=== PATIENT | male | born 1950 | race African-American/Black ===

== ENCOUNTER 2020-10-14 09:28 | Inpatient (IN) | payer MEDICARE, OTHER ==
[~2020-10-14] VITALS: Ht 172.7 cm; Wt 92.1 kg
[2020-10-14] MEDS ORDERED: LEVOFLOXACIN 500MG PREMIX 100 ML IV ONE (10:00)
[2020-10-14 10:15] LABS: HEMATOCRIT. 43.2 % (42.0-52.0); MEAN CORPUSCULAR HEMOGLOBIN 31.1 pg (28.0-32.0); MEAN CORPUSCULAR VOLUME 89.3 fL (80.0-94.0); MEAN PLATELET VOLUME 9.3 fl (7.4-10.4); PLATELET 108 x1000/uL (130-400); RED BLOOD CELL COUNT 4.83 mill/uL (4.7-6.1); RED CELL DISTRIBUTION WIDTH 13.5 % (11.6-14.6)
[2020-10-14 10:23] LABS: CHLORIDE 98 mEq/L (98-107)
[2020-10-14 11:03] LABS: PLATELET ESTIMATE SLIGHTLY DECREASED
[2020-10-14] MEDS ORDERED: FUROSEMIDE 20MG/2ML VIAL IVP ONE (12:15)
[2020-10-14] MEDS ORDERED: ONDANSETRON HCL 4MG/2ML INJ IV PRN (15:45)
[2020-10-14] MEDS ORDERED: CLONIDINE 0.1MG TABLET PO PRN (15:45)
[2020-10-14 17:20] VITALS: BP 139/81
[2020-10-14] MEDS: FUROSEMIDE 40MG/4ML VIAL IVP SCH (17:37)
[2020-10-14] MEDS: ENOXAPARIN 40MG/0.4ML SYR SUBCUT SCH (17:37)
[2020-10-14] MEDS: ACETAMINOPHEN 325MG TABLET PO PRN (17:39)
[2020-10-14] MEDS: BLOOD SUGAR DIAGNOSTIC STRIP TEST SCH ×2 (17:40→20:30)
[2020-10-14] MEDS: INSULIN LISPRO 100 UNITS/ML SUBCUT SCH ×2 (17:56→20:27)
[2020-10-14 18:20] VITALS: BP 142/81
[2020-10-14 20:00] VITALS: BP 119/67
[2020-10-14 23:35] LABS: CREATINE KINASE MB FRACTION < 1.0 ng/mL (0.5-3.6)
[2020-10-14 23:45] LABS: CREATINE KINASE 1060 IU/L (39-308)
[2020-10-15] VITALS: BP 121/68
[2020-10-15 04:00] VITALS: BP 141/73
[2020-10-15] MEDS: BLOOD SUGAR DIAGNOSTIC STRIP TEST SCH ×4 (07:18→20:33)
[2020-10-15] MEDS: INSULIN LISPRO 100 UNITS/ML SUBCUT SCH ×4 (07:18→20:34)
[2020-10-15 07:27] LABS: HEMATOCRIT. 41.4 % (42.0-52.0); HEMOGLOBIN. 14.3 g/dL (14.0-18.0); MEAN CORPUSCULAR HEMOGLOBIN 30.9 pg (28.0-32.0); MEAN CORPUSCULAR VOLUME 89.3 fL (80.0-94.0); MEAN PLATELET VOLUME 9.7 fl (7.4-10.4); PLATELET 91 x1000/uL (130-400); RED BLOOD CELL COUNT 4.63 mill/uL (4.7-6.1); RED CELL DISTRIBUTION WIDTH 13.4 % (11.6-14.6)
[2020-10-15 07:54] LABS: CHLORIDE 101 mEq/L (98-107)
[2020-10-15 07:58] VITALS: BP 125/73
[2020-10-15 08:02] LABS: CREATINE KINASE 999 IU/L (39-308)
[2020-10-15 08:04] LABS: CREATINE KINASE MB FRACTION < 1.0 ng/mL (0.5-3.6)
[2020-10-15 08:53] LABS: CLARITY URINE CLOUDY (CLEAR); COLOR URINE YELLOW (YELLOW); KETONES URINE NEGATIVE (NEGATIVE); LEUKOCYTE ESTERASE URINE NEGATIVE (NEGATIVE); NITRITE URINE NEGATIVE (NEGATIVE); OCCULT BLOOD URINE 1+ (NEGATIVE); PROTEIN URINE 1+ (NEGATIVE); SPECIFIC GRAVITY URINE 1.017 (1.005-1.030); UROBILINOGEN URINE 0.2 E.U./dL (0.2-1.0)
[2020-10-15] MEDS: FUROSEMIDE 40MG/4ML VIAL IVP SCH (08:59)
[2020-10-15] MEDS ORDERED: LEVOFLOXACIN 250MG PREMIX 100 ML IV SCH (10:00)
[2020-10-15] MEDS: ACETAMINOPHEN 325MG TABLET PO PRN (10:25)
[2020-10-15 12:00] VITALS: BP 133/72
[2020-10-15] MEDS: DEXAMETHASONE 6MG TABLET PO SCH (13:48)
[2020-10-15] MEDS: ENOXAPARIN 40MG/0.4ML SYR SUBCUT SCH (15:07)
[2020-10-15 16:00] VITALS: BP 136/77
[2020-10-15 17:03] LABS: PLATELET ESTIMATE DECREASED
[2020-10-15 20:00] VITALS: BP 153/75
[2020-10-15] MEDS: AMLODIPINE 5MG TABLET PO SCH (20:33)
[2020-10-16] VITALS: BP 150/69
[2020-10-16 04:00] VITALS: BP 145/82
[2020-10-16 06:55] LABS: BASOPHILS % 0.2 % (0.0-2.0); HEMATOCRIT. 43.8 % (42.0-52.0); LYMPHOCYTES % 12.7 % (20.0-50.0); MEAN CORPUSCULAR HEMOGLOBIN 30.8 pg (28.0-32.0); MEAN PLATELET VOLUME 9.6 fl (7.4-10.4); NEUTROPHILS % 82.1 % (40.0-76.0); PLATELET 97 x1000/uL (130-400); RED BLOOD CELL COUNT 4.86 mill/uL (4.7-6.1); RED CELL DISTRIBUTION WIDTH 13.6 % (11.6-14.6)
[2020-10-16] MEDS: BLOOD SUGAR DIAGNOSTIC STRIP TEST SCH ×4 (07:40→21:00)
[2020-10-16 08:00] VITALS: BP 142/83
[2020-10-16] MEDS: AMLODIPINE 5MG TABLET PO SCH ×2 (08:29→22:00)
[2020-10-16] MEDS: DEXAMETHASONE 6MG TABLET PO SCH (08:29)
[2020-10-16] MEDS: INSULIN LISPRO 100 UNITS/ML SUBCUT SCH ×4 (08:30→21:00)
[2020-10-16] MEDS: LEVOFLOXACIN 250MG PREMIX 100 ML IV SCH (11:31)
[2020-10-16] MEDS: LOSARTAN POTASSIUM 25 MG TABLET PO SCH ×2 (11:34→15:28)
[2020-10-16 12:00] VITALS: BP 128/70
[2020-10-16] MEDS ORDERED: DEX6 PO (12:38)
[2020-10-16] MEDS ORDERED: LEVO500T89 MT (12:38)
[2020-10-16] MEDS ORDERED: INSULIN GLARGINE UD 100 UNITS/ML SYR SUBCUT SCH (14:00)
[2020-10-16] MEDS: ENOXAPARIN 40MG/0.4ML SYR SUBCUT SCH (15:28)
[2020-10-16 16:00] VITALS: BP 123/68
[2020-10-16 21:49] LABS: *AMPHETAMINES SCREEN URINE NEGATIVE (NEGATIVE); *BARBITURATES SCREEN URINE NEGATIVE (NEGATIVE); *BENZODIAZEPINES SCREEN URINE NEGATIVE (NEGATIVE); *COCAINE SCREEN URINE NEGATIVE (NEGATIVE)
[2020-10-16 21:50] LABS: CANNABINOID URINE SCREEN NEGATIVE (NEGATIVE); METHADONE URINE SCREEN NEGATIVE (NEGATIVE); OPIATES URINE SCREEN NEGATIVE (NEGATIVE); PHENCYCLIDINE URINE SCREEN NEGATIVE (NEGATIVE)
[2020-10-17] VITALS (7 sets, daily range): BP systolic 119–149; BP diastolic 68–88
[2020-10-17] MEDS: ACETAMINOPHEN 325MG TABLET PO PRN ×2 (06:18→23:54)
[2020-10-17] MEDS: BLOOD SUGAR DIAGNOSTIC STRIP TEST SCH ×4 (06:53→21:00)
[2020-10-17 07:10] LABS: HEMATOCRIT 46.6 % (42.0-52.0); HEMOGLOBIN 16.3 g/dL (14.0-18.0); MEAN CORPUSCULAR HEMOGLOBIN 31.2 pg (28.0-32.0); MEAN CORPUSCULAR VOLUME 89.2 fL (80.0-94.0); PLATELET 87 x1000/uL (130-400); RED BLOOD CELL COUNT 5.23 mill/uL (4.7-6.1); RED CELL DISTRIBUTION WIDTH 13.5 % (11.6-14.6)
[2020-10-17] MEDS: AMLODIPINE 5MG TABLET PO SCH ×2 (08:08→21:57)
[2020-10-17] MEDS: DEXAMETHASONE 6MG TABLET PO SCH (08:08)
[2020-10-17] MEDS: LOSARTAN POTASSIUM 25 MG TABLET PO SCH ×2 (08:08→16:09)
[2020-10-17] MEDS: INSULIN LISPRO 100 UNITS/ML SUBCUT SCH ×5 (08:11→21:56)
[2020-10-17] MEDS: LEVOFLOXACIN 250MG PREMIX 100 ML IV SCH (11:37)
[2020-10-17 14:07] LABS: BG BASE EXCESS -0.7 mmol/L (-2.0-2.0); BG CARBOXYHEMOGLOBIN 1.2 % (0.5-1.5); BG DEOXYHEMOGLOBIN 7.3 % (0.0-5.0); BG FRACTION INSPIRED OXYGEN 99.8; BG METHEMOGLOBIN 0.1 % (0.0-1.5); BG OXYGEN SATURATION 92.6 % (92.0-98.5); BG OXYHEMOGLOBIN 91.4 % (94.0-97.0); BG PCO2 31.5 mmHg (35.0-45.0); BG PH 7.461 (7.350-7.450); BG PO2 62.3 mmHg (75.0-100.0); BG SAMPLE SITE LEFT RADIAL; BG TOTAL HEMOGLOBIN 16.8 g/dL (12.0-18.0); BG VENT MODE MASK - NRB
[2020-10-17] MEDS: ENOXAPARIN 40MG/0.4ML SYR SUBCUT SCH (16:00)
[2020-10-17] MEDS ORDERED: INSULIN GLARGINE UD 100 UNITS/ML SYR SUBCUT NR (19:00)
[2020-10-17] MEDS: INSULIN GLARGINE UD 100 UNITS/ML SYR SUBCUT SCH (21:57)
[2020-10-18 04:00] VITALS: BP 112/90
[2020-10-18 05:18] LABS: CHLORIDE 99 mEq/L (98-107)
[2020-10-18 06:17] LABS: BASOPHILS % 0.4 % (0.0-2.0); HEMATOCRIT. 45.4 % (42.0-52.0); HEMOGLOBIN. 15.4 g/dL (14.0-18.0); LYMPHOCYTES % 15.8 % (20.0-50.0); MEAN CORPUSCULAR VOLUME 88.7 fL (80.0-94.0); MEAN PLATELET VOLUME 9.4 fl (7.4-10.4); MONOCYTES % 11.4 % (2.0-8.0); NEUTROPHILS % 72.4 % (40.0-76.0); PLATELET 95 x1000/uL (130-400); RED BLOOD CELL COUNT 5.12 mill/uL (4.7-6.1); RED CELL DISTRIBUTION WIDTH 13.5 % (11.6-14.6)
[2020-10-18] MEDS: BLOOD SUGAR DIAGNOSTIC STRIP TEST SCH ×4 (07:40→21:18)
[2020-10-18 08:00] VITALS: BP 124/75
[2020-10-18] MEDS: DEXAMETHASONE 6MG TABLET PO SCH (08:04)
[2020-10-18] MEDS: LOSARTAN POTASSIUM 25 MG TABLET PO SCH ×2 (08:05→16:37)
[2020-10-18] MEDS: AMLODIPINE 5MG TABLET PO SCH ×2 (08:05→21:20)
[2020-10-18] MEDS: INSULIN LISPRO 100 UNITS/ML SUBCUT SCH ×4 (08:07→21:38)
[2020-10-18] MEDS: INSULIN GLARGINE UD 100 UNITS/ML SYR SUBCUT SCH ×2 (09:40→21:25)
[2020-10-18] MEDS: LEVOFLOXACIN 250MG PREMIX 100 ML IV SCH (10:15)
[2020-10-18 12:00] VITALS: BP 136/81
[2020-10-18 16:00] VITALS: BP 136/84
[2020-10-18 20:00] VITALS: BP 135/80
[2020-10-19] VITALS: BP 140/83
[2020-10-19 04:00] VITALS: BP 130/81
[2020-10-19] MEDS: BLOOD SUGAR DIAGNOSTIC STRIP TEST SCH ×4 (07:54→21:53)
[2020-10-19 08:00] VITALS: BP 118/63
[2020-10-19] MEDS: LOSARTAN POTASSIUM 25 MG TABLET PO SCH ×2 (08:08→16:25)
[2020-10-19] MEDS: DEXAMETHASONE 6MG TABLET PO SCH (08:09)
[2020-10-19] MEDS: INSULIN LISPRO 100 UNITS/ML SUBCUT SCH ×4 (08:09→21:49)
[2020-10-19] MEDS: AMLODIPINE 5MG TABLET PO SCH ×2 (08:09→21:48)
[2020-10-19] MEDS: INSULIN GLARGINE UD 100 UNITS/ML SYR SUBCUT SCH ×2 (10:43→21:49)
[2020-10-19 12:01] VITALS: BP 141/78
[2020-10-19] MEDS: ACETAMINOPHEN 325MG TABLET PO PRN (16:25)
[2020-10-19 16:53] VITALS: BP 143/75
[2020-10-19 20:00] VITALS: BP 133/66
[2020-10-20] VITALS: BP 121/65
[2020-10-20 04:00] VITALS: BP 126/67
[2020-10-20] MEDS: INSULIN LISPRO 100 UNITS/ML SUBCUT SCH ×4 (06:49→21:18)
[2020-10-20] MEDS: BLOOD SUGAR DIAGNOSTIC STRIP TEST SCH ×4 (06:49→21:19)
[2020-10-20 08:00] VITALS: BP 119/67
[2020-10-20] MEDS: LOSARTAN POTASSIUM 25 MG TABLET PO SCH ×2 (09:02→16:38)
[2020-10-20] MEDS: DEXAMETHASONE 6MG TABLET PO SCH (09:03)
[2020-10-20] MEDS: AMLODIPINE 5MG TABLET PO SCH ×2 (09:03→21:17)
[2020-10-20] MEDS: INSULIN GLARGINE UD 100 UNITS/ML SYR SUBCUT SCH ×2 (10:41→21:19)
[2020-10-20 12:00] VITALS: BP 125/73
[2020-10-20] MEDS: DOCUSATE SODIUM SUGAR FREE 100MG/10ML UDC PO SCH (15:18)
[2020-10-20 16:00] VITALS: BP 125/61
[2020-10-20 20:01] VITALS: BP 119/65
[2020-10-21] VITALS: BP 120/68
[2020-10-21 04:00] VITALS: BP 122/70
[2020-10-21 06:59] LABS: HEMATOCRIT. 45.3 % (42.0-52.0); MEAN CORPUSCULAR HEMOGLOBIN 29.6 pg (28.0-32.0); MEAN CORPUSCULAR VOLUME 89.5 fL (80.0-94.0); MEAN PLATELET VOLUME 8.7 fl (7.4-10.4); PLATELET 191 x1000/uL (130-400); RED BLOOD CELL COUNT 5.06 mill/uL (4.7-6.1); RED CELL DISTRIBUTION WIDTH 13.6 % (11.6-14.6)
[2020-10-21 07:11] LABS: CHLORIDE 101 mEq/L (98-107)
[2020-10-21] MEDS: BLOOD SUGAR DIAGNOSTIC STRIP TEST SCH ×4 (07:35→21:00)
[2020-10-21] MEDS: INSULIN LISPRO 100 UNITS/ML SUBCUT SCH ×4 (07:37→22:24)
[2020-10-21 08:00] VITALS: BP 114/66
[2020-10-21] MEDS: DEXAMETHASONE 6MG TABLET PO SCH (08:11)
[2020-10-21] MEDS: DOCUSATE SODIUM SUGAR FREE 100MG/10ML UDC PO SCH ×2 (08:11→08:15)
[2020-10-21] MEDS: AMLODIPINE 5MG TABLET PO SCH ×2 (08:11→22:24)
[2020-10-21] MEDS: LOSARTAN POTASSIUM 25 MG TABLET PO SCH ×2 (08:11→16:15)
[2020-10-21] MEDS: INSULIN GLARGINE UD 100 UNITS/ML SYR SUBCUT SCH ×2 (11:34→22:25)
[2020-10-21 12:00] VITALS: BP 136/76
[2020-10-21 15:07] LABS: PLATELET ESTIMATE NORMAL
[2020-10-21 16:00] VITALS: BP 143/76
[2020-10-21 20:00] VITALS: BP 134/75
[2020-10-22] VITALS: BP 121/69
[2020-10-22 04:00] VITALS: BP 132/80
[2020-10-22] MEDS: BLOOD SUGAR DIAGNOSTIC STRIP TEST SCH ×4 (07:40→21:42)
[2020-10-22 07:43] LABS: HEMATOCRIT. 46.1 % (42.0-52.0); HEMOGLOBIN. 15.7 g/dL (14.0-18.0); MEAN CORPUSCULAR HEMOGLOBIN 30.4 pg (28.0-32.0); MEAN CORPUSCULAR VOLUME 89.3 fL (80.0-94.0); MEAN PLATELET VOLUME 8.4 fl (7.4-10.4); PLATELET 252 x1000/uL (130-400); RED BLOOD CELL COUNT 5.16 mill/uL (4.7-6.1); RED CELL DISTRIBUTION WIDTH 13.4 % (11.6-14.6)
[2020-10-22] MEDS: INSULIN LISPRO 100 UNITS/ML SUBCUT SCH ×4 (07:54→21:33)
[2020-10-22 08:00] VITALS: BP 124/66
[2020-10-22] MEDS: DOCUSATE SODIUM SUGAR FREE 100MG/10ML UDC PO SCH (08:00)
[2020-10-22] MEDS: DEXAMETHASONE 6MG TABLET PO SCH (08:00)
[2020-10-22] MEDS: LOSARTAN POTASSIUM 25 MG TABLET PO SCH ×2 (08:00→16:25)
[2020-10-22] MEDS: AMLODIPINE 5MG TABLET PO SCH ×2 (08:00→21:34)
[2020-10-22] MEDS: INSULIN GLARGINE UD 100 UNITS/ML SYR SUBCUT SCH ×2 (10:14→21:40)
[2020-10-22 12:00] VITALS: BP 123/66
[2020-10-22] MEDS: LACTULOSE 20G/30ML UDC PO PRN (12:15)
[2020-10-22 13:35] LABS: PLATELET ESTIMATE NORMAL
[2020-10-22 16:00] VITALS: BP 113/53
[2020-10-22 20:00] VITALS: BP 124/71
[2020-10-22] MEDS ORDERED: ENOXAPARIN 40MG/0.4ML SYR SUBCUT SCH (20:00)
[2020-10-23] VITALS: BP 122/68
[2020-10-23 04:00] VITALS: BP 118/65
[2020-10-23] MEDS: ACETAMINOPHEN 325MG TABLET PO PRN ×2 (04:43→11:51)
[2020-10-23] MEDS: BLOOD SUGAR DIAGNOSTIC STRIP TEST SCH ×4 (07:40→21:00)
[2020-10-23 08:00] VITALS: BP 121/65
[2020-10-23] MEDS: INSULIN LISPRO 100 UNITS/ML SUBCUT SCH ×4 (08:10→22:34)
[2020-10-23] MEDS: DOCUSATE SODIUM SUGAR FREE 100MG/10ML UDC PO SCH (08:10)
[2020-10-23] MEDS: LOSARTAN POTASSIUM 25 MG TABLET PO SCH ×2 (08:11→17:35)
[2020-10-23] MEDS: DEXAMETHASONE 6MG TABLET PO SCH (08:11)
[2020-10-23] MEDS: AMLODIPINE 5MG TABLET PO SCH ×2 (08:11→22:34)
[2020-10-23 09:24] LABS: BG CARBOXYHEMOGLOBIN 0.6 % (0.5-1.5); BG FRACTION INSPIRED OXYGEN 100; BG METHEMOGLOBIN 0.2 % (0.0-1.5); BG OXYGEN SATURATION 92.9 % (92.0-98.5); BG OXYHEMOGLOBIN 92.2 % (94.0-97.0); BG PCO2 34.1 mmHg (35.0-45.0); BG PH 7.466 (7.350-7.450); BG PO2 65.2 mmHg (75.0-100.0); BG SAMPLE SITE RIGHT RADIAL; BG TOTAL HEMOGLOBIN 15.9 g/dL (12.0-18.0); BG VENT MODE MASK - BIPAP
[2020-10-23] MEDS: INSULIN GLARGINE UD 100 UNITS/ML SYR SUBCUT SCH ×2 (10:53→22:35)
[2020-10-23 11:13] LABS: HEMATOCRIT. 44.9 % (42.0-52.0); HEMOGLOBIN. 15.4 g/dL (14.0-18.0); MEAN CORPUSCULAR HEMOGLOBIN 30.3 pg (28.0-32.0); MEAN CORPUSCULAR VOLUME 88.6 fL (80.0-94.0); MEAN PLATELET VOLUME 8.4 fl (7.4-10.4); PLATELET 217 x1000/uL (130-400); RED BLOOD CELL COUNT 5.07 mill/uL (4.7-6.1); RED CELL DISTRIBUTION WIDTH 13.6 % (11.6-14.6)
[2020-10-23 11:16] LABS: CHLORIDE 106 mEq/L (98-107)
[2020-10-23 12:00] VITALS: BP 108/67
[2020-10-23] MEDS ORDERED: PIPERACILLIN/TAZOBACTAM 3.375 G in DEXT 5% WATER 100 ML IV SCH (14:00)
[2020-10-23 14:13] LABS: PLATELET ESTIMATE NORMAL
[2020-10-23 16:00] VITALS: BP 121/70
[2020-10-23] MEDS: PIPERACILLIN/TAZOBACTAM 3.375 G in DEXT 5% WATER 100 ML IV SCH ×2 (17:35→22:31)
[2020-10-23 20:00] VITALS: BP 117/72
[2020-10-23] MEDS: ENOXAPARIN 30MG/0.3ML SYR SUBCUT SCH (22:32)
[2020-10-24] VITALS: BP 133/75
[2020-10-24 04:00] VITALS: BP 132/76
[2020-10-24] MEDS: PIPERACILLIN/TAZOBACTAM 3.375 G in DEXT 5% WATER 100 ML IV SCH ×4 (05:07→21:23)
[2020-10-24] MEDS: ACETAMINOPHEN 325MG TABLET PO PRN ×3 (05:09→21:24)
[2020-10-24] MEDS: BLOOD SUGAR DIAGNOSTIC STRIP TEST SCH ×4 (07:15→21:24)
[2020-10-24 08:08] VITALS: BP 130/74
[2020-10-24] MEDS: ENOXAPARIN 30MG/0.3ML SYR SUBCUT SCH ×2 (08:12→21:23)
[2020-10-24] MEDS: DEXAMETHASONE 6MG TABLET PO SCH (08:12)
[2020-10-24] MEDS: LOSARTAN POTASSIUM 25 MG TABLET PO SCH ×2 (08:12→17:06)
[2020-10-24] MEDS: AMLODIPINE 5MG TABLET PO SCH ×2 (08:12→21:24)
[2020-10-24] MEDS: DOCUSATE SODIUM SUGAR FREE 100MG/10ML UDC PO SCH (08:12)
[2020-10-24] MEDS: INSULIN LISPRO 100 UNITS/ML SUBCUT SCH ×4 (08:32→21:00)
[2020-10-24 10:58] LABS: HEMATOCRIT. 46.9 % (42.0-52.0); MEAN CORPUSCULAR HEMOGLOBIN 30.5 pg (28.0-32.0); MEAN CORPUSCULAR VOLUME 89.1 fL (80.0-94.0); PLATELET 196 x1000/uL (130-400); RED BLOOD CELL COUNT 5.27 mill/uL (4.7-6.1); RED CELL DISTRIBUTION WIDTH 13.6 % (11.6-14.6)
[2020-10-24] MEDS: INSULIN GLARGINE UD 100 UNITS/ML SYR SUBCUT SCH ×2 (11:13→21:38)
[2020-10-24 11:15] LABS: CHLORIDE 100 mEq/L (98-107)
[2020-10-24 12:00] VITALS: BP 135/77
[2020-10-24 16:00] VITALS: BP 127/78
[2020-10-24 17:25] LABS: PLATELET ESTIMATE NORMAL
[2020-10-24] MEDS: TRAMADOL 50MG TABLET PO PRN (18:50)
[2020-10-24 20:00] VITALS: BP 119/74
[2020-10-25] VITALS: BP 138/78
[2020-10-25 04:00] VITALS: BP 123/75
[2020-10-25] MEDS: PIPERACILLIN/TAZOBACTAM 3.375 G in DEXT 5% WATER 100 ML IV SCH ×4 (04:01→21:51)
[2020-10-25] MEDS: ACETAMINOPHEN 325MG TABLET PO PRN ×3 (05:15→17:06)
[2020-10-25] MEDS: BLOOD SUGAR DIAGNOSTIC STRIP TEST SCH ×4 (05:38→21:50)
[2020-10-25] MEDS: INSULIN LISPRO 100 UNITS/ML SUBCUT SCH ×4 (06:06→21:00)
[2020-10-25 08:00] VITALS: BP 130/68
[2020-10-25] MEDS: DOCUSATE SODIUM SUGAR FREE 100MG/10ML UDC PO SCH (08:46)
[2020-10-25] MEDS: ENOXAPARIN 30MG/0.3ML SYR SUBCUT SCH ×2 (08:46→21:51)
[2020-10-25] MEDS: DEXAMETHASONE 6MG TABLET PO SCH (08:46)
[2020-10-25] MEDS: AMLODIPINE 5MG TABLET PO SCH ×2 (08:46→21:51)
[2020-10-25] MEDS: LOSARTAN POTASSIUM 25 MG TABLET PO SCH ×2 (08:46→17:06)
[2020-10-25] MEDS: TRAMADOL 50MG TABLET PO PRN ×2 (09:04→17:06)
[2020-10-25] MEDS: INSULIN GLARGINE UD 100 UNITS/ML SYR SUBCUT SCH ×2 (09:33→21:52)
[2020-10-25 16:00] VITALS: BP 137/80
[2020-10-25 20:00] VITALS: BP 118/68
[2020-10-25] MEDS: DEXTROSE 50% WATER 50ML SYRINGE IV PRN (21:51)
[2020-10-26] VITALS: BP 144/76
[2020-10-26] MEDS: PIPERACILLIN/TAZOBACTAM 3.375 G in DEXT 5% WATER 100 ML IV SCH ×4 (03:56→21:12)
[2020-10-26 04:00] VITALS: BP 118/67
[2020-10-26] MEDS: BLOOD SUGAR DIAGNOSTIC STRIP TEST SCH ×4 (06:00→20:57)
[2020-10-26 07:21] LABS: CHLORIDE 100 mEq/L (98-107)
[2020-10-26 07:22] LABS: HEMATOCRIT. 43.9 % (42.0-52.0); HEMOGLOBIN. 15.1 g/dL (14.0-18.0); MEAN CORPUSCULAR HEMOGLOBIN 30.9 pg (28.0-32.0); MEAN CORPUSCULAR VOLUME 89.7 fL (80.0-94.0); MEAN PLATELET VOLUME 9.6 fl (7.4-10.4); PLATELET 218 x1000/uL (130-400); RED BLOOD CELL COUNT 4.89 mill/uL (4.7-6.1); RED CELL DISTRIBUTION WIDTH 13.2 % (11.6-14.6)
[2020-10-26 08:00] VITALS: BP 103/62
[2020-10-26] MEDS: INSULIN LISPRO 100 UNITS/ML SUBCUT SCH ×4 (08:09→20:57)
[2020-10-26] MEDS: LOSARTAN POTASSIUM 25 MG TABLET PO SCH ×2 (08:33→17:35)
[2020-10-26] MEDS: AMLODIPINE 5MG TABLET PO SCH ×2 (08:33→21:12)
[2020-10-26] MEDS: DOCUSATE SODIUM SUGAR FREE 100MG/10ML UDC PO SCH (08:34)
[2020-10-26] MEDS: DEXTROSE 50% WATER 50ML SYRINGE IV PRN (08:35)
[2020-10-26] MEDS: DEXAMETHASONE 6MG TABLET PO SCH (08:35)
[2020-10-26] MEDS: MULTIVITAMINS,THER W-MINERALS TABLET PO SCH (08:35)
[2020-10-26] MEDS: ENOXAPARIN 30MG/0.3ML SYR SUBCUT SCH ×2 (08:35→21:12)
[2020-10-26 08:58] LABS: BG BASE EXCESS 3.2 mmol/L (-2.0-2.0); BG CARBOXYHEMOGLOBIN 0.9 % (0.5-1.5); BG DEOXYHEMOGLOBIN 11.8 % (0.0-5.0); BG FRACTION INSPIRED OXYGEN 100; BG METHEMOGLOBIN 0.3 % (0.0-1.5); BG OXYGEN SATURATION 88.1 % (92.0-98.5); BG PCO2 34.5 mmHg (35.0-45.0); BG PH 7.495 (7.350-7.450); BG PO2 52.8 mmHg (75.0-100.0); BG SAMPLE SITE LEFT RADIAL; BG VENT MODE HIGH FLOW
[2020-10-26] MEDS: INSULIN GLARGINE UD 100 UNITS/ML SYR SUBCUT SCH (09:06)
[2020-10-26 12:00] VITALS: BP 123/63
[2020-10-26] MEDS: ACETAMINOPHEN 325MG TABLET PO PRN ×2 (12:18→21:18)
[2020-10-26 12:52] LABS: PLATELET ESTIMATE NORMAL
[2020-10-26 16:00] VITALS: BP 117/67
[2020-10-26] MEDS ORDERED: IVERMECTIN 3 MG TABLET PO NR (17:30)
[2020-10-26 20:00] VITALS: BP 138/71
[2020-10-27] VITALS: BP 115/67
[2020-10-27 04:00] VITALS: BP 128/71
[2020-10-27] MEDS: BLOOD SUGAR DIAGNOSTIC STRIP TEST SCH ×4 (05:41→20:52)
[2020-10-27] MEDS: DEXTROSE 50% WATER 50ML SYRINGE IV PRN (05:41)
[2020-10-27] MEDS: PIPERACILLIN/TAZOBACTAM 3.375 G in DEXT 5% WATER 100 ML IV SCH ×4 (05:42→20:58)
[2020-10-27 08:00] VITALS: BP 116/68
[2020-10-27] MEDS: ACETAMINOPHEN 325MG TABLET PO PRN (08:05)
[2020-10-27] MEDS: DOCUSATE SODIUM SUGAR FREE 100MG/10ML UDC PO SCH (08:05)
[2020-10-27] MEDS: DEXAMETHASONE 6MG TABLET PO SCH (08:05)
[2020-10-27] MEDS: ENOXAPARIN 30MG/0.3ML SYR SUBCUT SCH ×2 (08:05→20:58)
[2020-10-27] MEDS: AMLODIPINE 5MG TABLET PO SCH ×2 (08:05→21:00)
[2020-10-27] MEDS: MULTIVITAMINS,THER W-MINERALS TABLET PO SCH (08:05)
[2020-10-27] MEDS: LOSARTAN POTASSIUM 25 MG TABLET PO SCH ×2 (08:05→16:36)
[2020-10-27] MEDS: INSULIN LISPRO 100 UNITS/ML SUBCUT SCH ×4 (08:06→20:54)
[2020-10-27 12:00] VITALS: BP 117/64
[2020-10-27 16:00] VITALS: BP 122/72
[2020-10-27] MEDS ORDERED: VANCOMYCIN 1,750 MG in DEXT 5% WATER 500 ML IV NR (18:00)
[2020-10-27 21:08] VITALS: BP 103/63
[2020-10-28] VITALS (35 sets, daily range): BP systolic 95–136; BP diastolic 56–80
[2020-10-28] MEDS: PIPERACILLIN/TAZOBACTAM 3.375 G in DEXT 5% WATER 100 ML IV SCH ×2 (04:49→10:16)
[2020-10-28] MEDS: VANCOMYCIN 750 MG PREMIX 150 ML IV SCH ×2 (05:45→18:34)
[2020-10-28] MEDS: BLOOD SUGAR DIAGNOSTIC STRIP TEST SCH ×4 (06:16→20:18)
[2020-10-28 06:35] LABS: HEMOGLOBIN. 14.2 g/dL (14.0-18.0); MEAN CORPUSCULAR HEMOGLOBIN 30.1 pg (28.0-32.0); MEAN CORPUSCULAR VOLUME 89.3 fL (80.0-94.0); MEAN PLATELET VOLUME 9.7 fl (7.4-10.4); PLATELET 203 x1000/uL (130-400); RED BLOOD CELL COUNT 4.71 mill/uL (4.7-6.1); RED CELL DISTRIBUTION WIDTH 13.5 % (11.6-14.6)
[2020-10-28 06:37] LABS: CHLORIDE 104 mEq/L (98-107)
[2020-10-28] MEDS: ENOXAPARIN 30MG/0.3ML SYR SUBCUT SCH ×2 (08:05→20:18)
[2020-10-28] MEDS: DEXAMETHASONE 6MG TABLET PO SCH (08:05)
[2020-10-28] MEDS: MULTIVITAMINS,THER W-MINERALS TABLET PO SCH (08:05)
[2020-10-28] MEDS: ACETAMINOPHEN 325MG TABLET PO PRN ×2 (08:05→17:49)
[2020-10-28] MEDS: INSULIN LISPRO 100 UNITS/ML SUBCUT SCH ×4 (08:06→20:23)
[2020-10-28] MEDS: DOCUSATE SODIUM SUGAR FREE 100MG/10ML UDC PO SCH ×2 (08:06→09:00)
[2020-10-28] MEDS: AMLODIPINE 5MG TABLET PO SCH ×2 (08:17→20:18)
[2020-10-28] MEDS: LOSARTAN POTASSIUM 25 MG TABLET PO SCH ×2 (08:17→17:28)
[2020-10-28] MEDS ORDERED: ACETAMINOPHEN 650MG SUPP PR PRN (11:00)
[2020-10-28] MEDS: MEROPENEM 1,000 MG in SODIUM CHLORIDE 0.9% 100 ML IV SCH (17:28)
[2020-10-28] MEDS ORDERED: IVERMECTIN 3 MG TABLET PO NR (17:30)
[2020-10-28 21:10] LABS: PLATELET ESTIMATE NORMAL
[2020-10-29] VITALS (58 sets, daily range): BP systolic 99–141; BP diastolic 38–81
[2020-10-29] MEDS: MEROPENEM 1,000 MG in SODIUM CHLORIDE 0.9% 100 ML IV SCH ×3 (00:18→16:47)
[2020-10-29] MEDS: VANCOMYCIN 750 MG PREMIX 150 ML IV SCH (05:00)
[2020-10-29 05:40] LABS: CHLORIDE 104 mEq/L (98-107)
[2020-10-29 05:47] LABS: HEMATOCRIT. 42.3 % (42.0-52.0); HEMOGLOBIN. 14.1 g/dL (14.0-18.0); MEAN CORPUSCULAR HEMOGLOBIN 29.9 pg (28.0-32.0); MEAN PLATELET VOLUME 9.8 fl (7.4-10.4); PLATELET 185 x1000/uL (130-400); RED CELL DISTRIBUTION WIDTH 13.7 % (11.6-14.6)
[2020-10-29] MEDS: BLOOD SUGAR DIAGNOSTIC STRIP TEST SCH ×4 (05:49→20:24)
[2020-10-29 05:54] LABS: VANCOMYCIN TROUGH 10.4 ug/mL (5.0-10.0)
[2020-10-29] MEDS: INSULIN LISPRO 100 UNITS/ML SUBCUT SCH ×4 (06:20→20:29)
[2020-10-29] MEDS: ENOXAPARIN 30MG/0.3ML SYR SUBCUT SCH ×2 (07:57→19:19)
[2020-10-29] MEDS: ACETAMINOPHEN 325MG TABLET PO PRN (07:58)
[2020-10-29] MEDS: DOCUSATE SODIUM SUGAR FREE 100MG/10ML UDC PO SCH (08:00)
[2020-10-29] MEDS: MULTIVITAMINS,THER W-MINERALS TABLET PO SCH (08:01)
[2020-10-29] MEDS: DEXAMETHASONE 6MG TABLET PO SCH (08:01)
[2020-10-29] MEDS: LOSARTAN POTASSIUM 25 MG TABLET PO SCH (08:33)
[2020-10-29] MEDS: AMLODIPINE 5MG TABLET PO SCH ×2 (08:34→20:29)
[2020-10-29 10:48] LABS: PLATELET ESTIMATE NORMAL
[2020-10-29] MEDS: METHYLPREDNISOLONE SOD SUCC 40 MG/ML VIAL IV SCH ×2 (11:35→19:20)
[2020-10-29] MEDS: LACTULOSE 20G/30ML UDC PO PRN (14:17)
[2020-10-29] MEDS: VANCOMYCIN 1250MG in DEXTROSE 5% WATER 250ML IV SCH (17:29)
[2020-10-30] VITALS (56 sets, daily range): BP systolic 108–174; BP diastolic 60–97
[2020-10-30] MEDS: MEROPENEM 1,000 MG in SODIUM CHLORIDE 0.9% 100 ML IV SCH ×3 (01:26→17:38)
[2020-10-30] MEDS: METHYLPREDNISOLONE SOD SUCC 40 MG/ML VIAL IV SCH ×3 (03:30→19:52)
[2020-10-30 05:52] LABS: HEMATOCRIT. 42.7 % (42.0-52.0); HEMOGLOBIN. 14.1 g/dL (14.0-18.0); MEAN CORPUSCULAR HEMOGLOBIN 29.9 pg (28.0-32.0); MEAN CORPUSCULAR VOLUME 90.4 fL (80.0-94.0); MEAN PLATELET VOLUME 9.9 fl (7.4-10.4); PLATELET 158 x1000/uL (130-400); RED BLOOD CELL COUNT 4.72 mill/uL (4.7-6.1); RED CELL DISTRIBUTION WIDTH 13.4 % (11.6-14.6)
[2020-10-30] MEDS: BLOOD SUGAR DIAGNOSTIC STRIP TEST SCH ×4 (05:57→20:50)
[2020-10-30] MEDS: VANCOMYCIN 1250MG in DEXTROSE 5% WATER 250ML IV SCH ×2 (06:00→18:13)
[2020-10-30] MEDS: INSULIN LISPRO 100 UNITS/ML SUBCUT SCH ×4 (06:01→21:02)
[2020-10-30 06:05] LABS: CHLORIDE 102 mEq/L (98-107)
[2020-10-30] MEDS ORDERED: SODIUM POLYSTYRENE SULFONATE 15 G/60 ML BOT PO SCH (08:00)
[2020-10-30] MEDS: ENOXAPARIN 30MG/0.3ML SYR SUBCUT SCH ×2 (08:13→19:52)
[2020-10-30] MEDS: DOCUSATE SODIUM SUGAR FREE 100MG/10ML UDC PO SCH (08:13)
[2020-10-30] MEDS: AMLODIPINE 5MG TABLET PO SCH ×2 (08:13→21:01)
[2020-10-30] MEDS: MULTIVITAMINS,THER W-MINERALS TABLET PO SCH (08:14)
[2020-10-30] MEDS ORDERED: SODIUM POLYSTYRENE SULFONATE 15 G/60 ML BOT PO NR (10:00)
[2020-10-30] MEDS: LACTULOSE 20G/30ML UDC PO PRN (12:49)
[2020-10-30 14:32] LABS: PLATELET ESTIMATE NORMAL
[2020-10-30] MEDS ORDERED: DEXTROSE 50% WATER 50ML SYRINGE IV PRN (18:00)
[2020-10-30] MEDS ORDERED: INSULIN GLARGINE UD 100 UNITS/ML SYR SUBCUT SCH (22:00)
[2020-10-31] VITALS (99 sets, daily range): BP systolic 56–167; BP diastolic 25–93
[2020-10-31] MEDS ORDERED: MORPHINE SULFATE 2 MG/ML CPJ (NOT FOR IM USE) IV PRN
[2020-10-31] MEDS: PROPOFOL 10MG/ML 100ML 100 ML IV PRN ×3 (01:35→15:20)
[2020-10-31] MEDS: MEROPENEM 1,000 MG in SODIUM CHLORIDE 0.9% 100 ML IV SCH ×3 (01:43→17:51)
[2020-10-31] MEDS ORDERED: PHENYLEPHRINE 100 MG in DEXT 5% WATER 240 ML IV PRN (02:00)
[2020-10-31 02:39] LABS: BG BASE EXCESS -4.4 mmol/L (-2.0-2.0); BG CARBOXYHEMOGLOBIN 0.8 % (0.5-1.5); BG DEOXYHEMOGLOBIN 11.3 % (0.0-5.0); BG FRACTION INSPIRED OXYGEN 100; BG HCO3 ACT 31.8 mmol/L (22.0-26.0); BG METHEMOGLOBIN 0.4 % (0.0-1.5); BG OXYGEN SATURATION 88.6 % (92.0-98.5); BG OXYHEMOGLOBIN 87.5 % (94.0-97.0); BG PCO2 135.3 mmHg (35.0-45.0); BG PH 6.989 (7.350-7.450); BG PO2 81.1 mmHg (75.0-100.0); BG SAMPLE SITE RIGHT RADIAL; BG TOTAL HEMOGLOBIN 16.2 g/dL (12.0-18.0); BG TOTAL RESPIRATORY RATE 22 b/min; BG VENT MODE VENT - AC
[2020-10-31] MEDS: METHYLPREDNISOLONE SOD SUCC 40 MG/ML VIAL IV SCH ×3 (02:43→18:42)
[2020-10-31 02:56] LABS: BG PEEP (cmH2O) 10 cmH2O
[2020-10-31] MEDS: BLOOD SUGAR DIAGNOSTIC STRIP TEST SCH ×2 (05:34→11:07)
[2020-10-31 05:38] LABS: HEMATOCRIT. 48.8 % (42.0-52.0); HEMOGLOBIN. 15.4 g/dL (14.0-18.0); MEAN CORPUSCULAR HEMOGLOBIN 29.3 pg (28.0-32.0); MEAN CORPUSCULAR VOLUME 92.9 fL (80.0-94.0); MEAN PLATELET VOLUME 9.8 fl (7.4-10.4); RED BLOOD CELL COUNT 5.25 mill/uL (4.7-6.1)
[2020-10-31] MEDS: VANCOMYCIN 1250MG in DEXTROSE 5% WATER 250ML IV SCH (05:41)
[2020-10-31] MEDS ORDERED: SODIUM POLYSTYRENE SULFONATE 15 G/60 ML BOT NG ONE (06:15)
[2020-10-31] MEDS ORDERED: SODIUM BICARBONATE 8.4% 1 MEQ/ML 50ML SYR IV ONE ×2 (06:30→10:10)
[2020-10-31] MEDS ORDERED: SODIUM POLYSTYRENE SULFONATE 15 G/60 ML BOT PO ONE (06:30)
[2020-10-31] MEDS ORDERED: INSULIN REGULAR (HUMULIN R) 300UNITS/3ML VIAL IV ONE (06:30)
[2020-10-31] MEDS ORDERED: DEXTROSE 50% WATER 50ML SYRINGE IV ONE (06:30)
[2020-10-31] MEDS: INSULIN LISPRO 100 UNITS/ML SUBCUT SCH ×3 (06:35→18:32)
[2020-10-31] MEDS ORDERED: VECURONIUM BROMIDE 10 MG/VIAL IV ONE (08:49)
[2020-10-31] MEDS ORDERED: ETOMIDATE 2MG/ML 10ML VIAL IV ONE (08:49)
[2020-10-31 08:57] LABS: BG BASE EXCESS -5.5 mmol/L (-2.0-2.0); BG CARBOXYHEMOGLOBIN 0.8 % (0.5-1.5); BG DEOXYHEMOGLOBIN 7.5 % (0.0-5.0); BG FRACTION INSPIRED OXYGEN 100; BG HCO3 ACT 21.6 mmol/L (22.0-26.0); BG METHEMOGLOBIN 0.3 % (0.0-1.5); BG OXYGEN SATURATION 92.4 % (92.0-98.5); BG OXYHEMOGLOBIN 91.4 % (94.0-97.0); BG PCO2 47.6 mmHg (35.0-45.0); BG PH 7.274 (7.350-7.450); BG PO2 70.3 mmHg (75.0-100.0); BG SAMPLE SITE LEFT BRACHIAL; BG TOTAL HEMOGLOBIN 15.3 g/dL (12.0-18.0); BG VENT MODE VENT - AC
[2020-10-31] MEDS: AMLODIPINE 5MG TABLET PO SCH (09:00)
[2020-10-31] MEDS: DOCUSATE SODIUM SUGAR FREE 100MG/10ML UDC PO SCH (09:14)
[2020-10-31] MEDS: MULTIVITAMINS,THER W-MINERALS TABLET PO SCH (09:14)
[2020-10-31] MEDS: ENOXAPARIN 30MG/0.3ML SYR SUBCUT SCH ×2 (09:14→19:37)
[2020-10-31] MEDS ORDERED: EPINEPHRINE 0.1MG/ML (1:10,000) 10ML SYR ONE (10:10)
[2020-10-31] MEDS ORDERED: CALCIUM CHLORIDE 1GM/10ML SYR IV ONE (10:10)
[2020-10-31 11:00] LABS: CREATINE KINASE 231 IU/L (39-308)
[2020-10-31 12:38] LABS: PLATELET ESTIMATE NORMAL
[2020-10-31 12:39] LABS: PLATELET 140 x1000/uL (130-400)
[2020-10-31] MEDS ORDERED: PROPOFOL 10MG/ML 100ML 100 ML IV PRN (12:45)
[2020-10-31] MEDS ORDERED: IPRATROPIUM/ALBUTEROL 0.5-3(2.5)MG/3ML NEB HHN PRN (12:45)
[2020-10-31] MEDS ORDERED: IPRATROPIUM/ALBUTEROL 0.5-3(2.5)MG/3ML NEB HHN SCH (13:00)
[2020-10-31] MEDS ORDERED: SODIUM POLYSTYRENE SULFONATE 15 G/60 ML BOT PO NR (17:30)
[2020-10-31] MEDS ORDERED: INSULIN REGULAR (HUMULIN R) 300UNITS/3ML VIAL SUBCUT NR (17:30)
[2020-10-31] MEDS ORDERED: DEXTROSE 50% WATER 50ML SYRINGE IV NR (17:30)
[2020-10-31] MEDS ORDERED: SODIUM BICARBONATE 8.4% 1 MEQ/ML 50ML SYR IV NR (17:30)
[2020-10-31] MEDS ORDERED: BLOOD SUGAR DIAGNOSTIC STRIP TEST SCH (18:00)
[2020-10-31] MEDS ORDERED: CALCIUM CHLORIDE 1,000 MG in DEXT 5% WATER 90 ML IV NR (19:00)
[2020-10-31] MEDS ORDERED: INSULIN REGULAR (HUMULIN R) UD 100 UNITS/ML SYR IV NR (19:00)
[2020-10-31 19:04] LABS: BG BASE EXCESS -7.6 mmol/L (-2.0-2.0); BG CARBOXYHEMOGLOBIN 0.4 % (0.5-1.5); BG DEOXYHEMOGLOBIN 7.4 % (0.0-5.0); BG FRACTION INSPIRED OXYGEN 100; BG HCO3 ACT 21.4 mmol/L (22.0-26.0); BG METHEMOGLOBIN 0.5 % (0.0-1.5); BG OXYGEN SATURATION 92.5 % (92.0-98.5); BG OXYHEMOGLOBIN 91.7 % (94.0-97.0); BG PCO2 58.4 mmHg (35.0-45.0); BG PH 7.182 (7.350-7.450); BG PO2 77.6 mmHg (75.0-100.0); BG SAMPLE SITE LEFT RADIAL; BG VENT MODE VENT - AC
[2020-10-31] MEDS ORDERED: VANCOMYCIN 1250MG in DEXTROSE 5% WATER 250ML IV SCH (20:00)
[2020-10-31] MEDS ORDERED: INSULIN GLARGINE UD 100 UNITS/ML SYR SUBCUT SCH (22:00)
[2020-11-01] MEDS ORDERED: INSULIN LISPRO 100 UNITS/ML SUBCUT SCH
== END 2020-10-31 22:54 | DRG 871 ==
LOC: ER 09:45 → 7WST 11:20 → EDBEDREQ 11:21 → EDBEDREQTM 11:21 → ENRESERV 16:00 → MICUSO 10-28 11:14
PROVIDERS: ADMIT Internal Medicine; ATTEND Internal Medicine
PROC: 5A09457 Assistance with Respiratory Ventilation, 24-96 Consecutive Hours, Continuous Positive Airway Pressure (ICD-10-PCS; 2020-10-23)
PROC: 5A09357 Assistance with Respiratory Ventilation, Less than 24 Consecutive Hours, Continuous Positive Airway Pressure (ICD-10-PCS; 2020-10-30)
PROC: 5A1935Z Respiratory Ventilation, Less than 24 Consecutive Hours (ICD-10-PCS; principal; 2020-10-31)
PROC: 0BH17EZ Insertion of Endotracheal Airway into Trachea, Via Natural or Artificial Opening (ICD-10-PCS; 2020-10-31)
PROC: 02HV33Z Insertion of Infusion Device into Superior Vena Cava, Percutaneous Approach (ICD-10-PCS; 2020-10-31)
PROC: B548ZZA Ultrasonography of Superior Vena Cava, Guidance (ICD-10-PCS; 2020-10-31)
DX: A41.89 Other specified sepsis (principal); U07.1 COVID-19; J12.82 Pneumonia due to coronavirus disease 2019; N17.0 Acute kidney failure with tubular necrosis; J96.01 Acute respiratory failure with hypoxia; I47.2 Ventricular tachycardia; E87.2 Acidosis; I11.0 Hypertensive heart disease with heart failure; E66.9 Obesity, unspecified; B97.89 Other viral agents as the cause of diseases classified elsewhere; D69.6 Thrombocytopenia, unspecified; E11.65 Type 2 diabetes mellitus with hyperglycemia; E87.5 Hyperkalemia; F32.9 Major depressive disorder, single episode, unspecified; I95.9 Hypotension, unspecified; R65.20 Severe sepsis without septic shock; R74.01 Elevation of levels of liver transaminase levels; I50.9 Heart failure, unspecified; Z82.41 Family history of sudden cardiac death; Z71.3 Dietary counseling and surveillance; Z68.30 Body mass index [BMI] 30.0-30.9, adult; I46.9 Cardiac arrest, cause unspecified
CPT/HCPCS: 31500; 36415; 36600; 71045; 76770; 76937; 78580; 80048; 80053; 80202; 80305; 81003; 82375; 82550; 82553; 82728; 82805; 82962; 83036; 83615; 83735; 83880; 84132; 84145; 84484; 85025; 85027; 85379; 86140; 87070; 87426; 93005; 93970; 94002; 94003; 94660; 99285; C1725; J1650; J1815; J1940; J1956; J2185; J2270; J2370; J2543; J2704; J2920; J3370; J3490; J7040; J7050; J7060; U0003; A4315